=== PATIENT | male | born 1975 | race African-American/Black ===

== ENCOUNTER 2020-10-17 10:32 | Outpatient (REF) | payer BC, SELFPAY ==
[2020-10-17 10:51] LABS: COVID-19 Test Negative (Negative)
== END 2020-10-17 10:33 | disposition home or self-care (01) ==
LOC: HO.LAB 10:32
PROVIDERS: Visit Provider Internal Medicine
DX: Z20.822 Contact with and (suspected) exposure to COVID-19 (principal)
CPT/HCPCS: 36415; 87635; C9803